=== PATIENT | female | born 1945 ===

== ENCOUNTER → 2019-06-02 | Outpatient (CLI) | payer OTHER ==
[~2019-06-02] VITALS: Ht 162.6 cm; Wt 87.1 kg
[~2019-06-02] MED LIST: BYDUREON P2 MG/0.65 SUBQ; FLEXERIL PO; GLIPIZIDE 10 MG10 MG PO; LIPITOR 20 MG T20 M1 PO; METFORMIN HCL500 M3 PO; MOBIC7.5 MG PO; NEURONTIN300 MG PO; OXYBUTYNIN 5 MG5 M2 PO; PROZAC40 MG PO; VENTOLIN HFA INH8 GM INH
--- NOTE | ~2019-06-02 | HPC ---
[facility] [address] [place] [address] PAIN MANAGEMENT CONSULTATION Name: AGGIE MEZA Room #: REG [facility].#: [id number] Admission: 06/02/19 Attend Phys: Charlie Mills MD Discharge: Date of : 43 Report #: [id number] THIS REPORT FOR: //name// CC: SILVINA Mills DATE OF SERVICE: 06/02/2019 CHIEF COMPLAINT: Low back pain with radiculopathy. The patient is here today at the request of Dr. Silvina Blevins. She is here specifically discussed an epidural steroid injection. She has found injections to be helpful in the past. She previously lived in [place], [place], has moved to [place]. She is looking for someone to provide her with helpful injections. It has been sometime since she last received an epidural injection. By description, this sounds to be midline injection, although I do not have her records from [place]. She has recently established with Dr. Blevins for primary care. Pain score today is a 7/10. It can be as high as a 9. She describes it as a continuous, shooting, aching, pounding, stabbing sensation. It is improved by pain injections. It is worsened by activities. Pain drawing shows most of her pain to be on the right and radiates through the right buttock. MEDICATIONS: Meloxicam, metformin, gabapentin, glipizide, atorvastatin, fluoxetine, Ventolin, cyclobenzaprine, oxybutynin, __. ALLERGIES: PENICILLIN AND LEVAQUIN. PAST MEDICAL HISTORY: She is diabetic and also has asthma. She has been evaluated for obstructive sleep apnea. She complains of multiple joint arthritis. PAST SURGICAL HISTORY: Tubal ligation in 1975, hemorrhoidectomy in 2009. REVIEW OF SYSTEMS: Recent weight gain. Fatigue and weakness, dyspnea on exertion, shortness of breath with wheezing, frequent diarrhea alternating with constipation, frequent nocturia and incontinence. Frequent recurring headaches, dizziness and lightheadedness. She reports memory loss or confusion, nervousness and depression. SOCIAL HISTORY: She is retired, . Denies use of tobacco, drinks alcohol once per week in a social setting. [facility] [address] [place] [address] PAIN MANAGEMENT CONSULTATION Name: AGGIE MEZA Room #: [facility].#: [id number] Admission: 06/02/19 Attend Phys: Charlie Mills MD Discharge: Date of : 43 Report #: [id number] PHYSICAL EXAMINATION: GENERAL: A 74-year-old female: pleasant, alert and oriented. VITAL SIGNS: Blood pressure is 121/63, heart rate 88, respirations 20, O2 sat 100, pain intensity 9/10. She moves independently from a sitting position to standing, but her gait is antalgic. CHEST: Clear. CARDIAC: Rhythm is regular. There is no audible murmur. ABDOMEN: Soft, no organomegaly. MUSCULOSKELETAL: Examination of the spine reveals tenderness across the lumbosacral segment. She has pain with forward flexion, extension and rotational movements. Pain radiates into the right hip. Straight leg raising reproduces pain into the right hip. Sensation is intact. There is no asymmetry in motor exam and no focal weakness. IMPRESSION: 1. Chronic back pain with radiculopathy. She has responded very well to epidural injections by her report. I would like to repeat the injection today. We will need to undergo a preauthorization for that. We will reduce the amount of triamcinolone and the injection due to her diabetes. Follow up injections will depend upon response. I would plan the injection at L4-L5 to the right of midline using a translaminar approach. Followup visit is scheduled for injection after preauthorization. By: [id number] Charlie Mills MD /nt
[2019-06-02 14:17] VITALS: BP 121/63
--- NOTE | 2019-06-02 14:51 | NUR ---
Pain Clinic Assessment: 1. History of Osteoarthritis: BACK RIGHT HIP History of Rheumatoid Arthritis: NONE 2. Height: 5 ft. 4 in. 162.6 cm. Weight: 192.0 lb. oz. 87.091 kg. Patient's BMI: 32.9 3. Vital Signs: BP: 121/63 Pulse: 88 Resp: 20 Temp: 02 Sat: 100 ECG Mon: 4. Pain Intensity: 9 5. Fall Risk: Dizziness: Y Needs help standing or walking: Y Fallen in the last 3 months: Y Fall risk comments: 6. Patient on Blood Thinner: None 7. History of Hypertension: N 8. Opioid Therapy greater than 6 weeks: Opiate Contract Signed: 9. Risk Assessment Tool Provided: MOD-6 10. Functional Assessment Tool: 11. Recreational Drug Use: Never Drug Type: Tobacco Use: Never Smoker Tobacco Type: Amount or Packs/day: How Many Years: Alcohol Use: Yes Frequency: Weekly Quant: 1 GLASS OF WINE
== END ==
LOC: PAIN 06:58
DX: M54.16 Radiculopathy, lumbar region (principal); G89.29 Other chronic pain; E11.9 Type 2 diabetes mellitus without complications; J45.909 Unspecified asthma, uncomplicated; G47.33 Obstructive sleep apnea (adult) (pediatric); M19.90 Unspecified osteoarthritis, unspecified site; Z79.891 Long term (current) use of opiate analgesic; Z79.899 Other long term (current) drug therapy; Z79.84 Long term (current) use of oral hypoglycemic drugs; Z88.0 Allergy status to penicillin